=== PATIENT | female | born 1995 | race Caucasian/White ===

== ENCOUNTER 2018-05-04 15:19 | Emergency (ER) | payer BC ==
[~2018-05-04] VITALS: Ht 177.8 cm; Wt 63.6 kg
[~2018-05-04 15:19] MED LIST: CRYSELLE 30 MCG1 TAB PO; NORCO 325 MG-51 TAB PO; XARELTO STARTER20 MG PO
[2018-05-04 15:36] VITALS: TEMP 98
[2018-05-04] MEDS ORDERED: XARELTO20 MG PO (16:24)
[2018-05-04] MEDS ORDERED: DOXYCYCLINE 10100 MG PO (16:25)
[2018-05-04 16:34] LABS: BASO % 0.6 % (0.0-2.0); EOS # 0.1 (0.0-0.7); EOS % 1.7 % (0-4.0); GRAN # 2.8 (1.4-6.5); GRAN % 44.9 % (42.2-75.2); HEMATOCRIT 37.8 % (37.0-47.0); HEMOGLOBIN 12.5 g/dl (12.5-16.0); LYMPH # 2.9 (1.2-3.4); LYMPH % 46.4 % (20.0-51.0); MEAN CELL VOLUME 88 fl (80.0-100.0); MEAN CORPUSCULAR HEMOGLOBIN 29 pg (27.0-31.0); MEAN CORPUSCULAR HGB CONC 33 g/dl (33.0-37.0); MONO # 0.4 (0.1-0.6); MONO % 6.2 % (1.7-9.3); PLATELET COUNT 278 K/mm3 (130-400); RED BLOOD COUNT 4.29 M/mm3 (4.10-5.30); REDCELL DISTRIBUTION WIDTH-CV 12.3 % (11.5-14.5)
[2018-05-04 16:52] LABS: ALBUMIN 4.6 gm/dL (3.5-5.0); BILIRUBIN,TOTAL 0.3 mg/dL (0.0-1.0); CALCIUM 9.7 mg/dL (8.4-10.2); CREATININE, serum 0.67 mg/dL (0.52-1.25); POTASSIUM 3.9 mmol/L (3.4-5.0); TOTAL PROTEIN 7.7 gm/dL (6.4-8.2)
[2018-05-04 17:35] VITALS: BP 121/76; PULSE 78
== END 2018-05-04 17:36 | disposition home or self-care (01) ==
LOC: COL.ER 15:19
PROVIDERS: Emergency Medicine
DX: N93.9 Abnormal uterine and vaginal bleeding, unspecified (principal); F12.90 Cannabis use, unspecified, uncomplicated; Z79.01 Long term (current) use of anticoagulants; Z87.891 Personal history of nicotine dependence; Z86.711 Personal history of pulmonary embolism
CPT/HCPCS: J7030